=== PATIENT | female | born 1985 | race Caucasian/White ===

== ENCOUNTER 2021-11-27 21:30 | Emergency (ER) | payer SELFPAY ==
--- NOTE | 2021-11-27 23:00 | NUR ---
Patient was just called at this time due to 2 emergency ocurring in the ER, but patient was not present in the waiting room or outside of ER.
--- NOTE | 2021-11-27 23:45 | NUR ---
Patient was called to be triaged but was not present in the waiting room or outside of ER.
--- NOTE | 2021-11-28 | NUR ---
Patient was called to be triaged but was not present in the waiting room. PATIENT WAS NOT TRIAGED OR SEEN BY [facility].
== END 2021-11-28 | disposition left against medical advice (07) ==
LOC: ER 21:36
DX: Z53.21 Procedure and treatment not carried out due to patient leaving prior to being seen by health care provider (principal)